=== PATIENT | female | born 1950 | race Caucasian/White ===

== ENCOUNTER 2023-04-24 12:15 | Day surgery (SDC) | payer MEDICARE, BC, SELFPAY ==
[2023-04-24] MEDS: KETOROLAC OPHTH 0.5% 1 DROP EYE-LEFT ×3 (12:20→12:30)
[2023-04-24] MEDS: TETRACAINE 0.5% OPHTH 1 DROP EYE-LEFT (12:20)
[2023-04-24] MEDS: SODIUM CHLORIDE 0.9 % (FLUSH) 10 ML SYRINGE IVF (13:00)
[2023-04-24 13:07] VITALS: BP 137/88; PULSE 96; RESP 16; TEMP 36.8; O2SAT 96
[2023-04-24 13:11] VITALS: BMI 30.9
[2023-04-24] MEDS: TETRACAINE 0.5% OPHTH 2 DROP EYE-LEFT (14:08)
[2023-04-24] MEDS: BALANCED SALT IRRIG SOLN 15 ML EYE-LEFT (14:10)
[2023-04-24] MEDS: BRIMONIDINE TARTRATE 0.2% OPHTH 1 DROP EYE-LEFT (14:25)
--- NOTE | 2023-04-24 14:27 | PM.PROC ---
Procedure Note Date Seen: 04/24/23 Will [facility] bill your pro fee for this procedure?: No Pre-op diagnosis: combined form of cataaract left eye Procedure Description: NAME OF PROCEDURE Lynne phacoemulsification, left eye, with posterior chamber lens implant. PREOPERATIVE DIAGNOSIS Nuclear sclerotic cortical combined cataract, left eye. POSTOPERATIVE DIAGNOSIS Nuclear sclerotic cortical combined cataract, left eye. INDICATIONS FOR PROCEDURE The patient has noted that his vision in the left eye is failing. Severity 8/10. Unable to correct with glasses/contact lenses; has disabling night glare when driving, difficulty reading. Because of this, the patient elected to proceed with surgical repair. I have explained the risks, benefits, alternative treatments to the patient including possible loss of the eye under correction, over correction, need for more surgery. The patient understands, accepts, and elects to proceed with surgical repair. PROCEDURE The left eye was dilated with a combination 1% Mydriacyl, 2.5% phenylephrine with topical Ocufen and Vigamox applied to the corneal surface. The patient was brought to the main operating room where under IV sedation, after pausing to identify the correct patient, correct intraoperative lens, power 22.5 diopters, the left eye was prepped and draped in usual sterile fashion for intraocular surgery. A lid speculum was placed and a paracentesis created at 6 o'clock. The chamber was filled with OVD and entered temporally with a keratome. A continuous tear capsulotomy was performed. The nucleus was hydrodissected and emulsified with local anesthetic and emulsified in a chop technique in the capsular bag. Residual cortex was cleaned. The capsule was clear. At this point, ZCBOO 22.5 diopter posterior chamber lens implant was injected into the capsular bag and was well centered. Residual OVD was cleaned from behind the implant from the capsular bag. The incision hydrated and noted to be leak free. Topical Alphagan, pilocarpine, and Vigamox were applied to the corneal surface and the patient returned to recovery in good condition having tolerated the procedure well. CONDITION ON DISCHARGE Satisfactory.
[2023-04-24 14:28] VITALS: BP 116/84; PULSE 82; RESP 16; TEMP 36.4; O2SAT 92
--- NOTE | 2023-04-24 14:39 | W.ANESCHARGE ---
Anesthesia Charges Start Date/Time Anesthesia Start Date: 04/24/23 Anesthesia Start Time: 14:06 Stop Date/Time Anesthesia Stop Date: 04/24/23 Anesthesia Stop Time: 14:31
--- NOTE | 2023-04-24 14:40 | W.ANESCHARGE ---
Anesthesia Charges Start Date/Time Anesthesia Start Date: 04/24/23 Anesthesia Start Time: 14:06 Stop Date/Time Anesthesia Stop Date: 04/24/23 Anesthesia Stop Time: 14:31 Summary Extremes of Age - Over 70 or under 1: MDA
== END 2023-04-24 15:12 | disposition home or self-care (01) ==
PROVIDERS: PCP Family Medicine; Visit Provider Ophthalmology
PROC: (CPT 66984; principal; 2023-04-24 13:30)
DX: H25.812 Combined forms of age-related cataract, left eye (principal)
CPT/HCPCS: 66984; 00142; 82962; 99100; A9270; J2250; J3010; S0020; V2632

== ENCOUNTER 2023-04-29 13:00 | Outpatient (RCR) | payer MEDICARE, BC, SELFPAY | END 2023-08-27 23:59 | disposition home or self-care (01) | PROVIDERS: PCP Family Medicine; Visit Provider Family Medicine | DX: M79.18 Myalgia, other site (principal); M25.60 Stiffness of unspecified joint, not elsewhere classified; R53.1 Weakness; Z51.89 Encounter for other specified aftercare | CPT/HCPCS: 97110; 97140; 97162 ==

== ENCOUNTER 2023-05-22 06:23 | Day surgery (SDC) | payer MEDICARE, BC, SELFPAY ==
[2023-05-22] MEDS: TETRACAINE 0.5% OPHTH 1 DROP EYE-RIGHT (06:20)
[2023-05-22] MEDS: KETOROLAC OPHTH 0.5% 1 DROP EYE-RIGHT ×3 (06:30→06:40)
[2023-05-22 06:43] VITALS: BP 130/93; PULSE 92; RESP 16; TEMP 36.4; O2SAT 94
[2023-05-22] MEDS: SODIUM CHLORIDE 0.9 % (FLUSH) 10 ML SYRINGE IVF (07:01)
[2023-05-22 07:03] VITALS: BMI 30.9
[2023-05-22] MEDS: BRIMONIDINE TARTRATE 0.2% OPHTH 1 DROP EYE-RIGHT (07:40)
[2023-05-22] MEDS: BALANCED SALT IRRIG SOLN 15 ML EYE-RIGHT (07:40)
[2023-05-22] MEDS: TETRACAINE 0.5% OPHTH 2 DROP EYE-RIGHT (07:40)
--- NOTE | 2023-05-22 07:43 | SUR.PREOP ---
The eye drops brought by the patient (Ketorolac and Prednisolone) are examined and I have determined they are labeled by the patient's pharmacy for this patient as prescribed by the surgeon. The bottles are intact, recently obtained and appear to be correct.
--- NOTE | 2023-05-22 07:46 | P.ANES_ITS ---
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
--- NOTE | 2023-05-22 07:55 | P.PCN_ITS ---
Procedure Note Date Seen: 05/22/23 Will [facility] bill your pro fee for this procedure?: No Post-op diagnosis: other Procedure: NAME OF PROCEDURE Lynne phacoemulsification, right eye, with posterior chamber lens implant. PREOPERATIVE DIAGNOSIS Nuclear sclerotic cortical combined cataract, right eye. POSTOPERATIVE DIAGNOSIS Nuclear sclerotic cortical combined cataract, right eye. INDICATIONS FOR PROCEDURE The patient has noted that his vision in the right eye is failing. Severity 7/10. Unable to correct with glasses/contact lenses; has disabling night glare when driving, difficulty reading. Because of this, the patient elected to proceed with surgical repair. I have explained the risks, benefits, alternative treatments to the patient including possible loss of the eye under correction, over correction, need for more surgery. The patient understands, accepts, and elects to proceed with surgical repair. PROCEDURE The right eye was dilated with a combination 1% Mydriacyl, 2.5% phenylephrine with topical Ocufen and Vigamox applied to the corneal surface. The patient was brought to the main operating room where under IV sedation, after pausing to identify the correct patient, correct intraoperative lens, power . The right eye was prepped and draped in usual sterile fashion for intraocular surgery. A lid speculum was placed and a paracentesis created at 12 o'clock. The chamber was filled with OVD and entered temporally with a keratome. A continuous tear capsulotomy was performed. The nucleus was hydrodissected and emulsified with local anesthetic and emulsified in a chop technique in the capsular bag. Residual cortex was cleaned. The capsule was clear. At this point, ZCBOO 19.5 diopter posterior chamber lens implant was injected into the capsular bag and was well centered. Residual OVD was cleaned from behind the implant from the capsular bag. The incision hydrated and noted to be leak free. Topical Alphagan, pilocarpine, and Vigamox were applied to the corneal surface and the patient returned to recovery in good condition having tolerated the procedure well. CONDITION ON DISCHARGE Satisfactory.
[2023-05-22 08:01] VITALS: BP 106/64; PULSE 76; RESP 16; TEMP 36.6; O2SAT 93
[2023-05-22 08:10] VITALS: BP 124/80; PULSE 86; RESP 16; O2SAT 91
--- NOTE | 2023-05-22 08:38 | W.ANESCHARGE ---
Anesthesia Charges Start Date/Time Anesthesia Start Date: 05/22/23 Anesthesia Start Time: 07:23 Stop Date/Time Anesthesia Stop Date: 05/22/23 Anesthesia Stop Time: 07:59 Summary Extremes of Age - Over 70 or under 1: MDA
== END 2023-05-22 08:44 | disposition home or self-care (01) ==
PROVIDERS: PCP Family Medicine; Visit Provider Ophthalmology
PROC: (CPT 66984; principal; 2023-05-22 07:30)
DX: H25.11 Age-related nuclear cataract, right eye (principal)
CPT/HCPCS: 66984; 00142; 99100; A9270; J2250; J3010; S0020; V2632

== ENCOUNTER 2024-05-15 07:12 | Outpatient (CLI) | payer MEDICARE, BC, SELFPAY ==
--- OUTSIDE RECORDS SUMMARY | 2024-05-13 11:32 | XMS_ITS | Patient Health Record ---
Author Organization [facility] Address [address] [place] [address] Care Team Providers Care Visual Journalist Name Role Phone Barbara Stockton Primary Care Provider Unavail able SAMAN KAPADIA Unavailable [phone] Allergies No Known Allergies Reason For Referral No Information Medications Medication SIG (Take, Route, Frequency, Duration) Notes Start Date End Date Status Fish Oil Active Simvastatin 10 MG 1 tablet in the evening Orally Once a day Active Metoprolol Succinate 100 MG 1 capsule Or ally Once a day Active metFORMIN HCl 500 MG 1 tablet with meals Orally Twice a day Active Clobetasol Propionate 0.05 % APPLY TOPIC ALLY TO AFFECTED AREA(S) TWO TIMES DAILY. External for 7 Days Active Mounjaro 2.5 MG/0.5ML Subcutaneous for 2 8 Days Active Aspir-81 Active Loperamide HCl 2 MG TAKE 2 CAPSULES BY MOUTH WITH 1ST LOOSE STOOL, THEN 1 CAPSULE WITH EACH SUBSEQUENT LOOSE STOOL, MAX DOSE IS 8 CAPSULES IN 24 HOURS. Oral for 6 Days Active Fluticasone Propionate 50 MCG/DOSE 1 spray in each nostril Nasally Once a day Active hydroCHLOROthiazide 25 MG 1 tablet Orall y Once a day Active DULoxetine HCl 20 MG 1 capsule Orally Tw ice a day Active Social History Tobacco Use: Social History Observation Description Date Details (start date - stop date) Never Smoker NA - NA Alcohol Screen Question Answer Notes Did you have a drink contain ing alcohol in the past year? Yes How often did you have a dri nk containing alcohol in the past year? 2 to 4 times a month (2 points) How many drinks did you have on a typical day when you were drinking in the past year? 1 or 2 drinks (0 point) How often did you have 6 or more drinks on one occasion in the past year? Never (0 point) Points 2 Interpretation Negative Tobacco Control (Standard) Question Answer Notes Tobacco use: Nonsmoker Problems Problem Type SNOMED Code ICD Code Onset Dates Problem Status W/U Status Risk Notes Problem Impacted cerumen (72202950) Impacted cerumen, bilateral (H61.23) Active confirmed Problem 59056068 Chronic rhinitis (J31.0) Active confirmed Problem 67731677 Eustachian tube dysfunction (H69.80) Active confirmed Problem 5648184253910341 Left ear impacted cerumen (H61.22) Active confirmed Problem Sensorineural hearing loss, bilateral (460137312) Bilateral sensorineural hearing loss (H90.3) Active confirmed Problem 206709265 Sensation of fullness in both ears (H93.8X3) Active confirmed Problem Otalgia (61691267) Otalgia, left (H92.02) Active confirmed Problem 041471043 Sensation of fullness in ear, unspecified laterality (H93.8X9) Active confirmed Vital Signs Temperature 97.7 degrees Fahrenheit 04/10/2024 Height-cm 170.18 cm 04/10/2024 Weight-kg 88.9 kg 04/10/2024 Height 67 in 04/10/2024 Weight 196 lbs 04/10/2024 BMI 30.69 kg/m2 04/10/2024 Encounters Encounter Location Date Provider Diagnosis [facility] [place] [address] [facility] [place] [id number] 04/10/2024 SAMAN KAPADIA Sensation of fullnes s in ear, unspecified laterality H93.8X9 and Impacted cerumen of left ear H61.22 Assessments Encounter Date Diagnosis (ICD Code) Assessment Notes Treatment Notes Treatment Clinical Notes Section Notes 04/10/2024 Sensation of fullness in ear, unspecified laterality (ICD-10 - H93.8X9) The patient was experiencing ear fullness and some hearing loss related to cerumen impaction. After cleaning the ears, the ear fullness was resolved. 04/10/2024 Impacted cerumen of left ear (ICD-10 - H61.22) The patient required removal of significant cerumen. The patient was instructed to avoid Qtip usage, and can use vegetable oil or mineral oil at home in the ears to soften wax. Follow up unable to clear cerumen at home. 04/10/2024 Other Body mass index material was published Plan Of Treatment No Information Insurance Providers Payer Name Payer Address Payer Phone Subscriber Number Group Number Insured Name Patient Relationship to Insured Coverage Start Date Coverage End Date [employer] [place] [employer] [address] [address] [place], [place] [id number] 2000 [id number] Porsche Rey Self - patient is the insured MEDICARE [address] [place] [address] [id number] Porsche Rey Self - patient is the insured 3 Medical (General) History Medical History History ICD Code HTN Cerumen, impacted Hearing loss, sensorineural Otalgia Diabetes High cholesterol anxiety Covid vaccine 07/2020 Surgical History Surgery Date(Month/Year) Right hip fx Hernia x 2 Hospitalization History Reason Date(Month/Year) above surgery for hip
--- OUTSIDE RECORDS SUMMARY | 2024-05-13 11:32 | XMS_ITS ---
Author Organization [facility] Address [address] [place] [address] Care Team Providers Care Marker Machine Name Role Phone Barbara Stockton Primary Care Provider Unavail able SAMAN KAPADIA Unavailable [phone] Allergies No Known Allergies REASON FOR VISIT ear cleaning Medications Medication SIG (Take, Route, Frequency, Duration) Notes Start Date End Date Status Clobetasol Propionate 0.05 % APPLY TOPIC ALLY TO AFFECTED AREA(S) TWO TIMES DAILY. External for 7 Days Active Aspir-81 Active Loperamide HCl 2 MG TAKE 2 CAPSULES BY MOUTH WITH 1ST LOOSE STOOL, THEN 1 CAPSULE WITH EACH SUBSEQUENT LOOSE STOOL, MAX DOSE IS 8 CAPSULES IN 24 HOURS. Oral for 6 Days Active Fish Oil Active Simvastatin 10 MG 1 tablet in the evening Orally Once a day Active Metoprolol Succinate 100 MG 1 capsule Or ally Once a day Active metFORMIN HCl 500 MG 1 tablet with meals Orally Twice a day Active Mounjaro 2.5 MG/0.5ML Subcutaneous for 2 8 Days Active Fluticasone Propionate 50 MCG/DOSE 1 [...] (Standard) Question Answer Notes Tobacco use: Nonsmoker Vital Signs Temperature 97.7 degrees Fahrenheit 04/10/20 Weight 196 lbs 04/10/2024 Height 67 in 04/10/2024 BMI 30.69 kg/m2 04/10/2024 Height-cm 170.18 cm 04/10/2024 Weight-kg 88.9 kg 04/10/2024 Encounters Encounter Location Date Provider Diagnosis [facility] [place] [address] [place] [address] 04/10/2024 SAMAN KAPADIA Sensation of fullnes s [...] index material was published Plan Of Treatment Treatment Notes Assessment Notes Sensation of fullness in ear , unspecified laterality The patient was experiencing ear fullnes s and some hearing loss related to cerumen impaction. After cleaning the ears, the ear fullness was resolved. Impacted cerumen of left ear The patient required removal of significant cerumen. The patient was instructed to avoid Qtip usage, and can use vegetable oil or mineral oil at home in the ears to soften wax. Follow up unable to clear cerumen at home. Other Body mass index mate rial was published Next Appt Details Follow Up: prn, Reason: Progress Notes * Porsche ADLERnDOB: (73 yo F)Acc No.[id number]:04/10/2024 Patient: Porsche SUN Provider: Marquis KAPADIA MD :[id number] A ge:73 Y S ex:Female Date:04/10/2024 Address:[address] [place] [address] [id number] Pcp:Barbara Stockton Subjective: * Chief Complaints: * E ar cleaning * HPI: - -Narrative--: Current visit summary: Gillian shen presents to the clinic for routine ear cleaning. . * Medical History: * Surgical History: R ight hip fx Hernia x 2 * Hospitalization/Major Diagno stic Procedure: a ramona surgery for hip * Family History: Sarah krause Grand Father: diagnosed with History of frequent ear infections. * Social History: T obacco Use: T obacco Control (Standard) T obacco use: N onsmoker A lcohol Use: A lcohol Screen D id you have a drink containing alcohol in the past year? Y es H ow often did you have a drink containing alcohol in the past year? 2 to 4 times a month (2 points) H ow many drinks did you have on a typical day when you were drinking in the past year? 1 or 2 drinks (0 point) H ow often did you have 6 or more drinks on one occasion in the past year? N ever (0 point) P oints 2 I nterpretation N egative Recreational drugs R ecreational Drug Use: N o * Medications: T akingAspir-81 hydroCHLOROthiazide 25 MG Tablet 1 tablet Orally Once a day Fluticasone Propionate 50 MCG/DOSE Suspension 1 spray in each nostril Nasally Once a day DULoxetine HCl 20 MG Capsule Delayed Release Particles 1 capsule Orally Twice a day Simvastatin 10 MG Tablet 1 tablet in the evening Orally Once a day Fish Oil metFORMIN HCl 500 MG Tablet 1 tablet with meals Orally Twice a day Metoprolol Succinate 100 MG Capsule ER 24 Hour Sprinkle 1 capsule Orally Once a day Mounjaro 2.5 MG/0.5ML Solution Auto-injector Subcutaneous Clobetasol Propionate 0.05 % Cream APPLY TOPICALLY TO AFFECTED AREA(S) TWO TIMES DAILY. External Loperamide HCl 2 MG Capsule TAKE 2 CAPSULES BY MOUTH WITH 1ST LOOSE STOOL, THEN 1 CAPSULE WITH EACH SUBSEQUENT LOOSE STOOL, MAX DOSE IS 8 CAPSULES IN 24 HOURS. Oral Taking Aspir-81 Taking hydroCHLOROthiazide 25 MG Tablet 1 tablet Orally Once a day Taking Fluticasone Propionate 50 MCG/DOSE Suspension 1 spray in each nostril Nasally Once a day Taking DULoxetine HCl 20 MG Capsule Delayed Release Particles 1 capsule Orally Twice a day Taking Simvastatin 10 MG Tablet 1 tablet in the evening Orally Once a day Taking Fish Oil Taking metFORMIN HCl 500 MG Tablet 1 tablet with meals Orally Twice a day Taking Metoprolol Succinate 100 MG Capsule ER 24 Hour Sprinkle 1 capsule Orally Once a day Taking Mounjaro 2.5 MG/0.5ML Solution Auto-injector Subcutaneous Taking Clobetasol Propionate 0.05 % Cream APPLY TOPICALLY TO AFFECTED AREA(S) TWO TIMES DAILY. External Taking Loperamide HCl 2 MG Capsule TAKE 2 CAPSULES BY MOUTH WITH 1ST LOOSE STOOL, THEN 1 CAPSULE WITH EACH SUBSEQUENT LOOSE STOOL, MAX DOSE IS 8 CAPSULES IN 24 HOURS. Oral DiscontinuedHyoscyamine LORazepam Medication List reviewed and reconciled with the patientDiscontinued Hyoscyamine Discontinued LORazepam Medication List reviewed and reconciled with the patient * Allergies: N .K.D.A.no[Allergies Verified] Objective: * Vitals: T emp: 97.7 F, Wt-lbs: 196 lbs, Ht: 67 in, BMI:30.69Index, Ht-cm: 170.18 cm, Wt- k.9 kg. * Examination: E ars: Clinical speech hotel receptionist threshold: N ormal, Able to hear normal speech , Normal, Able to hear normal speech. Auricle: N ormal, Auricles without scars, lesions, or masses , Normal, Auricles without scars, lesions, or masses. External auditory canal: L eft:cerumen impaction. Right: clear canal. Tympanic membrane: clear bilat after cleaning. C onstitutional: General Appearance: N ormal, Well developed, Well nourished, No obvious distress. Ability to Communicate: N ormal, Communicates appropriately. H ead and Face: Appearance and Symmetry: N ormal, Facial strength symmetric, No scalp or facial scarring or suspicious lesions. E yes: Appearance N ormal extraocular movements, No nystagmus, Conjunctiva normal. N ose: Architecture: N ormal, Grossly normal external nasal architecture with no masses or lesions. O ral Cavity and Oropharynx: Lips: N ormal, No lip deformities. Dental and gingiva: N ormal, No obvious dental or gingival disease. Mucosa: N ormal, Moist mucous membranes. ? N elda: Masses/lymph nodes: N ormal, No visible neck masses or swelling. N eurological: Alertness and orientation: N ormal, Responsive, oriented x 3. Cranial Nerves II-XII N ormal. Speech pattern: N ormal, Prosaic, Direct with normal inflection and intonation. C ardiovascular: Peripheral vascular system: N ormal, including normal palpable exam of the head and neck, including no abnormal pulsations or thrills. Pulse N ormal. R espiratory: Symmetry and Respiratory effort: N ormal, Symmetric chest movement and expansion with no increased intercostal retractions or use of accessory muscles. Breath sounds: N ormal. L arynx and Hypopharynx, mirror or scope: Voice Quality: N ormal voice quality. ? Assessment: * Assessment: 1. S ensation of fullness in ear, unspecified laterality - H93.8X9 (Primary) 2 . I mpacted cerumen of left ear - H61.22 Plan: * Treatment: 2. I mpacted cerumen of left ear Notes:The patient required removal of significant cerumen. The patient was instructed to avoid Qtip usage, and can use vegetable oil or mineral oil at home in the ears to soften wax. Follow up unable to clear cerumen at home. 3. O thers Notes: Body mass index material was published * Procedures: M icroscopic Ear Exam with Cerumen Removal: Risks and benefits were discussed and verbal consent provided. The patient was positioned under the microscope and the cerumen impaction were removed from the left ear under microscopic visualization without incident. I used a combination of ear suction, cerumen curet and alligator forceps. The tympanic membrane is intact and without infection or effusion. The procedure was well tolerated. * Procedure Codes: 6 9210 Cerumen removal bilateral (in-office)[id number] Binocular microscopy (in-office) * Preventive Medicine: MIPS: B OH Above Normal BMI Follow-up D ietary management education, guidance, and counseling * Follow Up: p rn * * AP PLACER Sign off status: Completed true * Provider: Marquis KAPADIA MD Date: 06/10/2023 Generated for Fátimai nigel/Kimberly/eTransmitting on: 07/14/2023 11:31 AM RIPRAP PLACER History and Physical Notes * HPI (History of Present Illness) Category Sub-Category Detail Notes Category Not es --Narrative-- Current visit summary: Patient p resents to the clinic for routine ear cleaning. Examination Category Sub-Category Detail Notes Category Not es Constitutional General Appearance: Normal, Well developed, Well nourished, No obvious distress Ability to Communicate: Normal, Communic ates appropriately Head and Face Appearance and Symmetry: Normal, Facial strength symmetric, No scalp or facial scarring or suspicious lesions Ears Clinical speech rece ption threshold: Normal, Able to hear normal speech , Normal, Able to hear normal speech Auricle: Normal, Auricles wit hout scars, lesions, or masses , Normal, Auricles without scars, lesions, or masses External auditory canal: Left:cerumen im paction. Right: clear canal Tympanic membrane: clear bilat after cl eaning Nose Architecture: Normal, Grossly normal external nasal architecture with no masses or lesions Oral Cavity and Oropharynx Lips: Normal, No lip deformities Dental and gingiva: Normal, No obvious d ental or gingival disease Mucosa: Normal, Moist mucous membranes Larynx and Hypopharynx, mirr or or scope Voice Quality: Normal voice quality Neck Masses/lymph nodes: Normal, No v isible neck masses or swelling Neurological Alertness and orientation: Steph l, Responsive, oriented x 3 Cranial Nerves II-XII Normal Speech pattern: Normal, Prosaic, Dir ect with normal inflection and intonation Respiratory Symmetry and Respiratory effort: Normal, Symmetric chest movement and expansion with no increased intercostal retractions or use of accessory muscles Breath sounds: Normal Cardiovascular Peripheral vascular system: Norm al, including normal palpable exam of the head and neck, including no abnormal pulsations or thrills Pulse Normal Eyes Appearance Normal extraocular movements , No nystagmus, Conjunctiva normal
--- NOTE | 2024-05-15 08:00 | W.ANESCHARGE ---
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
--- NOTE | 2024-05-15 08:48 | W.ANESCHARGE ---
Anesthesia Charges Start Date/Time Anesthesia Start Date: 05/15/24 Anesthesia Start Time: 08:09 Stop Date/Time Anesthesia Stop Date: 05/15/24 Anesthesia Stop Time: 08:40 Summary Extremes of Age - Over 70 or under 1: MDA
== END 2024-05-15 07:13 | disposition home or self-care (01) ==
LOC: OP CLINIC 07:15
PROVIDERS: PCP Family Medicine; Visit Provider Internal Medicine Gastroenterology
DX: Z12.11 Encounter for screening for malignant neoplasm of colon (principal); D12.3 Benign neoplasm of transverse colon; K57.30 Diverticulosis of large intestine without perforation or abscess without bleeding; Z86.0101 Personal history of adenomatous and serrated colon polyps
CPT/HCPCS: 00811; 45385; 99100; J2704

== ENCOUNTER 2025-03-03 11:14 | Emergency (ER) | payer MEDICARE, BC, SELFPAY ==
--- OUTSIDE RECORDS SUMMARY | 2025-03-03 11:16 | XMS_ITS | Patient Health Record ---
Author Organization [facility] Address [address] [place] [address] Care Team Providers Care Bedspread Seamer Name Role Phone Barbara Stockton Primary Care Provider Unavail able SAMAN KAPADIA Unavailable [phone] Allergies No Known Allergies Reason For Referral No Information Medications Medication SIG (Take, Route, Frequency, Duration) Notes Start Date End Date Status Fish Oil Active Simvastatin 10 MG Tablet 1 tablet in the evening Orally Once a day Active Metoprolol Succinate 100 MG Capsule ER 24 Hour Sprinkle 1 capsule Orally Once a day Active metFORMIN HCl 500 MG Tablet 1 tablet wit h meals Orally Twice a day Active Clobetasol Propionate 0.05 % Cream APPLY TOPICALLY TO AFFECTED AREA(S) TWO TIMES DAILY. External; Duration: 7 Days Active Mounjaro 2.5 MG/0.5ML Soluti on Auto-injector Subcutaneous; Duration: 28 Days Active Aspir-81 Active Loperamide HCl 2 MG Capsule TAKE 2 CAPSU LES BY MOUTH WITH 1ST LOOSE STOOL, THEN 1 CAPSULE WITH EACH SUBSEQUENT LOOSE STOOL, MAX DOSE IS 8 CAPSULES IN 24 HOURS. Oral; Duration: 6 Days Active Fluticasone Propionate 50 MCG/DOSE Suspension 1 spray in each nostril Nasally Once a day Active hydroCHLOROthiazide 25 MG Tablet 1 tablet Orally Once a day Active DULoxetine HCl 20 MG Capsule Delayed Release Particles 1 capsule Orally Twice a day Active Social History Tobacco Use: Social History Observation Description Date Details (start date - stop date) Never Smoker NA - NA Social History Alcohol Use: Social Info Question Answer Notes Recreational drugs Recreational Drug Use: No Alcohol Screen Did you have a drink containing alcohol in the past year? Yes How often did you have a drink containing [...] Never (0 point) Points 2 Interpretation Negative : Social Info Question Answer Notes How often do you consume alcohol? Answer: more th an 6 per week Tobacco Use: Social Info Question Answer Notes Tobacco Control (Standard) Tobacco use: Nonsmoker Recreational drug use Social Info Question Answer Notes Did you ever use recreational drugs? Answer: No Additional Details Category Social Info Options Details Occupation Current occupation: retired Problems Problem Type SNOMED Code ICD Code Onset Dates Problem Status W/U Status Risk Notes Problem Impacted cerumen (86719435) Impacted cerumen, bilateral (H61.23) Active confirmed Problem Chronic rhinitis (11359499) Chronic rhinitis (J31.0) Active confirmed Problem Eustachian tube dysfunction (41528443) Eustachian tube dysfunction (H69.80) Active confirmed Problem Impacted cerumen (53595264) Left ear impacted cerumen (H61.22) Active confirmed Problem Sensorineural hearing loss, bilateral (611313746) Bilateral sensorineural hearing loss (H90.3) Active confirmed Problem Disorder of ear (disorder) (55434465) Sensation of fullness in both ears (H93.8X3) Active confirmed Problem Otalgia of left ear (finding) (4093321977) Otalgia, left (H92.02) Active confirmed Problem Sensation of fullness in ear, unspecified laterality (H93.8X9) Active confirmed Vital Signs Temperature 97.7 degrees Fahrenheit 04/10/2024 Height-cm 170.18 cm 04/10/2024 Weight-kg 88.9 kg 04/10/2024 Height 67 in 04/10/2024 Weight 196 lbs 04/10/2024 BMI 30.69 kg/m2 04/10/2024 Encounters Encounter Location Date Provider Diagnosis [facility] [address] [place] [address] [place] [id number] 04/10/2024 SAMAN KANG Sensation of fullnes s in ear, unspecified [...] Date [employer] [place] [employer]ICARE [address] [address] [place], [place] [id number] 2000 [id number] Porsche Rey Self - patient is the insured MEDICARE [address] [place] [address] [id number] Porsche Rey Self - patient is the insured 3 Medical (General) History Medical History History ICD Code HTN Cerumen, impacted Hearing loss, sensorineural Otalgia Diabetes High cholesterol anxiety Covid vaccine 07/2020 Surgical History Surgery Date(Month/Year) Right hip fx Hernia x 2 Hospitalization History Reason Date(Month/Year) above surgery for hip
[2025-03-03 11:30] VITALS: BP 138/86; PULSE 90; RESP 16; TEMP 36.4; O2SAT 97; BMI 30.1
--- NOTE | 2025-03-03 11:39 | CRLHL7_ITS ---
For Patients: As a result of the Cures Act, medical imaging exams and procedure reports are released immediately into your electronic medical record. You may view this report before your referring provider. If you have questions, please contact your health care provider. INDICATION: Dizziness. TECHNIQUE: CT head without contrast. COMPARISON: None. FINDINGS: Generalized volume loss and mild changes of chronic small vessel ischemic disease. Intracranial atherosclerosis. No mass effect or midline shift. No hydrocephalus. No CT evidence of acute hemorrhage or infarction. No abnormal extra-axial fluid collection. Bone windows show no acute calvarial fracture. Paranasal sinuses and orbits as imaged are unremarkable. IMPRESSION: No acute intracranial abnormality. Dictated by Regulo Majano MD @ 03/03/2025 12:50:41 PM Please note that all CT scans at this facility use dose modulation, iterative reconstruction, and/or weight-based dosing when appropriate to reduce radiation dose to as low as reasonably achievable. Dictated by: Regulo Majano MD @ 03/03/2025 12:50:53 (Electronically Signed)
--- NOTE | 2025-03-03 11:44 | CRLHL7_ITS ---
For Patients: As a result of the Century Cures Act, medical imaging exams and procedure reports are released immediately into your electronic medical record. You may view this report before your referring provider. If you have questions, please contact your health care provider. INDICATION: Dizziness. TECHNIQUE: CTA head using intravenous contrast with bolus tracking, 3D angiographic rendering using maximum intensity projection (MIP) and images permanently archived. CTA neck using intravenous contrast with bolus tracking, 3D angiographic rendering using maximum intensity projection (MIP) and images permanently archived. FINDINGS: CTA head: There is normal opacification of the intracranial vasculature. There is no large vessel occlusion or significant intracranial stenosis. No aneurysm is identified. CTA neck: There is no significant carotid artery stenosis or dissection. There is no significant vertebral artery stenosis or dissection. IMPRESSION: No acute intracranial abnormality at CTA. No significant carotid or vertebral artery stenosis or dissection. Please note that all CT scans at this facility use dose modulation, iterative reconstruction, and/or weight-based dosing when appropriate to reduce radiation dose to as low as reasonably achievable. Dictated by Hilario Oro MD @ 03/04/2025 8:57:56 AM (Electronically Signed)
--- NOTE | 2025-03-03 11:45 | ED.DIZZY ---
HPI - Dizziness General Time Seen by Provider: 11:46 Date Seen: 03/03/25 Chief Complaint: Dizziness/Vertigo Stated Complaint: Dizziness Time Seen by Provider: 03/03/25 11:47 Source: patient, RN notes reviewed and old records reviewed Mode of arrival: ambulatory Limitations: no limitations History of Present Illness HPI Narrative: Triage nurse brought this 74-year-old female to attention to me, there is no availability of rooms but after triage in her, they felt she needed CT imaging for the possibility of stroke pathology. She woke this morning with new dizziness and had difficulty balancing and walking. She was up in the night around 2:23 a.m. and did not notice this. Last known well would be around 2:23 a.m.. She checked her sugar as she is diabetic, was 126 this morning. She does note she has anxiety and did tell nursing staff that her anxiety has been worse lately. They did do head CT [facility] We are going to try to find room for her, she will need CT angiography as well, will get a point of care creatinine. I am going to try to see her in triage shortly. We were able to get Perlita into room for quite quickly, saw her immediately after she was placed in the room. She awoke at 9:30 a.m. and felt dizzy, it is not a room spinning sensation. It is more sense of imbalance in her gait or wobbly. Her daughter is with her, they have noted no speech issues. She notes no visual changes, no numbness tingling or weakness anywhere. Patient's mom had double aneurysms in the back of her head, wonder if this was vertebral artery. She does not have a headache. She is diabetic. She has not been sick with anything, no cough or cold symptoms, no fevers or chills, no abdominal symptoms. She has not noted any chest pain, no shortness of breath, no palpitations or irregular heartbeat. Did take her 81 mg aspirin today, takes 1 daily. In her [facility] records, she had a creatinine of 0.88 on October 07, estimated GFR of 68. Do think that this patient can proceed with her CT imaging with CT head noncontrast and CT head and neck angio at this time. Have updated Radiology. Patient doesn't drink any alcohol. Patient's past medical history is significant for hypertension, type 2 diabetes, lichen sclerosis, osteopenia, allergic rhinitis, history of colon polyps, irritable bowel syndrome with diarrhea. She does have a history of anxiety and depression. MD elicited complaint: dizziness, difficulty walking and disequilibrium Related Data Home Medications ?Medication ?Instructions ?Recorded ?Confirmed aspirin 81 mg tablet,delayed 81 mg PO QDAY 03/29/23 03/03/25 release cholecalciferol (vitamin D3) 50 50 mcg PO QDAY 03/29/23 03/03/25 mcg (2,000 unit) capsule (Vitamin D3) coenzyme Q10 300 mg capsule (Co 300 mg PO QDAY 03/29/23 03/03/25 Q-10) duloxetine 20 mg capsule,delayed 20 mg PO BID 03/29/23 03/03/25 release fluticasone propionate 50 1 spray intranasal QDAY 03/29/23 03/03/25 mcg/actuation nasal spray,suspension hydrochlorothiazide 25 mg tablet 25 mg PO DAILY 03/29/23 03/03/25 ibuprofen 600 mg tablet 600 mg PO 3XD 03/29/23 03/03/25 metformin 500 mg tablet,extended 500 mg PO BID 03/29/23 03/03/25 release 24 hr metoprolol succinate 100 mg 100 mg PO DAILY 03/29/23 03/03/25 tablet,extended release 24 hr miconazole nitrate 200 mg-2 % (9 topical 03/29/23 03/29/23 gram) vaginal kit (Miconazole-3) multivitamin (Multiple Vitamins 1 tab PO QDAY 03/29/23 04/24/23 tablet) omega 4-xcy-oyh-fish oil 900 cap PO 03/29/23 03/29/23 mg-1,400 mg capsule,delayed release (Fish Oil) simvastatin 10 mg tablet 10 mg PO QPM 03/29/23 03/03/25 zinc gluconate 50 mg tablet 50 mg PO 3XW 03/29/23 03/03/25 blood glucose control high and low 03/03/25 03/03/25 solution (Accu-Chek Guide L1-L2 Control Solution) tirzepatide 5 mg/0.5 mL 5 mg subcut 03/03/25 subcutaneous pen injector (Mónica) Allergies Allergy/AdvReac Type Severity Reaction Status Date / Time No Known Drug Allergies Allergy Unverified 03/29/23 09:11 Review of Systems Status of ROS: Reports: 6 or more systems reviewed and unremarkable except as noted in History and below [facility] Medical History Type 2 diabetes mellitus ?E11.9 - Type 2 diabetes mellitus without complications (ICD-10) Closed fracture of neck of femur (~09/2013) ?S72.009A - Fracture of unspecified part of neck of unspecified femur, initial encounter for closed fracture (ICD-10) Surgical History History of open reduction and internal fixation (ORIF) procedure (10/07/13) ?Z98.890 - Other specified postprocedural states (ICD-10) Status post laparoscopic hernia repair (03/08/16) ?Z98.890 - Other specified postprocedural states (ICD-10) ?Z87.19 - Personal history of other diseases of the digestive system (ICD-10) Family History Father Heart disease Myocardial infarction Mother Diabetes Brain aneurysm Sister Diabetes Brother Diabetes Social History Smoking Status: Former smoker What tobacco products do you use: cigarettes Smoking quit date/years: >15 years ago Do you use any of these nicotine containing products: None Second hand tobacco smoke exposure: No How often do you have a drink containing alcohol: 2-3 times a week Alcohol type: beer, wine and hard liquor How many standard drinks containing alcohol do you have on a typical day: 1 or 2 How often do you have six or more drinks on one occasion: Never AUDIT-C Alcohol total score: 3 Non-prescribed substance use: denies use Caffeine: Yes Are you using contraception or practicing any form of control: No Exam Const: Vital Signs, click to edit/add: Vital Signs - 24 hr 03/03/25 11:30 03/03/25 12:13 03/03/25 16:38 Temperature 97.6 F Pulse Rate [Pulse Oximeter] 90 91 Respiratory Rate 16 18 Blood Pressure [Ri ght Upper Arm] 138/86 130/90 H Pulse Oximetry 97 95 96 Oxygen Delivery Me thod Room Air Room Air This 74-year-old female is observed being brought back in wheelchair into exam room for, nursing staff did have to assist her as she seemed a little unsteady going from the wheelchair to the chair. She is alert, interactive, no apparent distress. GCS 15/15. Pupils equal round reactive, sclera clear, extraocular muscles intact, no nystagmus. No visual field cuts and gross confrontation. Symmetrical facial function, speech is normal. Lungs are clear, good air entry, no wheeze or crackles come know to keep knee a. CV regular rate and rhythm, no murmur, normal S1-S2, no S3-S4. Abdomen is soft, nontender, nondistended, no organomegaly noted. She has no lower extremity edema. Strength is 5 5 and symmetric throughout upper and lower extremities, normal light touch sensation. No dysmetria noted on examination. When I get her up to ambulate, just seems wobbly, gait maybe mildly wide-based. Both she and her daughter note that she normally walks without any issue. She certainly seems to be wobbly at times but I cannot assign necessarily one side or the other where I see the problem. Right now based on an AH, would give her score of 0 but I certainly see concerns with her gait. Documenting provider has reviewed patient's vital signs: yes Course Course ED Course: We are going to proceed with neuro imaging with noncontrast head CT and CT angiography. Patient will have an EKG, be on pulse oximetry and cardiac monitoring, she sounds regular right now but we have discussed embolic phenomena with arrhythmia that can happen with stroke pathology. She is diabetic in certainly could have small vessel disease. She did take an aspirin this morning and takes 1 daily, 81 mg. Will get her head CT and CT angio done, pushed to [place] and talk to Stroke Neurology. She is out of a thrombolytics window, have less concern about large vessel occlusion in this patient but will still do the CT angiography. There is a family history of cerebral aneurysms in her mother. Patient understands that we may be proceeding with MR imaging of her brain as well. Reevaluation(s) Time of Reevaluation #1: 13:39 Reevaluation #1: Reviewed with patient her head CT imaging in her CT angio imaging are reassuring we normal. We did discuss that there was no aneurysm. We also reviewed that the head CT may not show strokes right away and may never show some small area of strokes. Have reviewed with her that I think we will likely be proceeding with MRI of her head, do need to talk to Stroke Neuro whom has been paged. She brought that she had heard that if you have a stroke you need to get a medicine within 4 hours. I reviewed with her that when she presented she was already out of the window of the 4.5 hours. We discussed her last known well was when she was up this morning. We reviewed that when she woke up at 9:30 a.m. this morning she already had symptoms, we do not know exactly when they started but that would put her out of a window to get a thrombolytic. Time of Reevaluation #2: 16:49 Reevaluation #2: Did review with patient that her MRI of her brain is not showing any stroke. She has felt better here, feels that she is walking better. She has questions about osteopenia moving into osteoporosis, questions about the physical therapy she is doing, questions about seeing a warp clamper. They asked about her labs, I will need to look at those again and come back to talk to her. Time of Reevaluation #3: 17:05 Reevaluation #3: Did review with patient that the liver tests are mildly off. She has had a history of this before. However, in her records in clinic her liver enzymes were normal in May. This is something that needs to be followed up, they should be rechecked in clinic. I do not see any emergent need for further evaluation at this time, they are not elevated to a level that would require any emergent intervention. Consultations Consultation #1: Did speak with Stroke Neurology Dr. Madison. He has the patient CT and CT angiograms. Reviewed the case, he does agree with proceeding with MR brain which I had already ordered. Did review with him that baseline this patient is on 81 mg aspirin daily and did take it today. I will follow up with them once we have MR imaging. Time: 14:01 Vital Signs Vital signs: Initial Vital Signs Temperature 97.6 F 03/03/25 11:30 Temperature Source Temporal Artery Scan 03/03/25 11:30 Pulse Rate 90 03/03/25 11:30 Respiratory Rate 16 03/03/25 11:30 Blood Pressure 138/86 03/03/25 11:30 Blood Pressure Mean 103 03/03/25 11:30 Blood Pressure Position Sitting 03/03/25 11:30 Pulse Oximetry 97 03/03/25 11:30 Oxygen Delivery Method Room Air 03/03/25 11:30 Vital Signs Temperature 97.6 F 03/03/25 11:30 Pulse Rate 90 03/03/25 11:30 Respiratory Rate 16 03/03/25 11:30 Blood Pressure 138/86 03/03/25 11:30 Pulse Oximetry 97 03/03/25 11:30 Oxygen Delivery Method Room Air 03/03/25 11:30 Temperature 97.6 F 03/03/25 11:30 Pulse Rate 91 03/03/25 16:38 Respiratory Rate 18 03/03/25 16:38 Blood Pressure 130/90 H 03/03/25 16:38 Pulse Oximetry 96 03/03/25 16:38 Oxygen Delivery Method Room Air 03/03/25 16:38 Medications Administered Medications: Discontinued Medications Generic Name Dose Route Start Last Admin Trade Name Freq PRN Reason Stop Dose Admin Lorazepam 1 mg 03/03/25 15:01 03/03/25 15:19 Lorazepam 1 Mg Tablet PO 03/03/25 15:02 1 mg ONCE ONE Administration MDM - Dizziness Lab Data Attestation: I reviewed the patient's lab results. Labs: Lab Results 03/03/25 Range/Units 12:08 WBC 6.39 (4.50-11.00) K/uL RBC 5.10 (4.00-5.20) m/uL Hgb 15.9 (12.0-16.0) gm/dL Hct 46.9 (33.0-51.0) % MCV 92 (80-100) fL MCH 31 (26-34) pg MCHC 34 (32-36) gm/dL RDW Coeff of Mary 13.4 (11.5-15.5) % Plt Count 179 (140-440) K/uL Neut % (Auto) 69.7 (42.0-72.0) % Lymph % (Auto) 21.8 (20-44) % [place] % (Auto) 6.1 (0.0-11.0) % Eos % (Auto) 1.7 (0.0-7.0) % Baso % (Auto) 0.5 (0.0-3.0) % Neut # (Auto) 4.46 (1.7-7.0) K/uL Lymph # (Auto) 1.39 (0.90-2.90) K/uL [place] # (Auto) 0.40 (0.00-0.90) K/UL Eos # (Auto) 0.11 (0.00-0.50) K/uL Baso # (Auto) 0.03 (0.00-0.30) K/uL Abs Immat Gran (auto) 0.01 (0.00-0.30) K/uL Imm/Tot Granulo (auto) 0.2 % INR 1.15 H (0.91-1.10) APTT 35 H (23-33) Seconds Sodium 136 (135-149) mmol/L Potassium 4.3 (3.6-5.1) mmol/L Chloride 97 (96-114) mmol/L Carbon Dioxide 32 (20-32) mmol/L Anion Gap 7 (7-15) mEq/L BUN 18 (7-30) mg/dL Creatinine 0.8 (0.5-1.5) mg/dL Estimated Creat Clear 46.54 Estimated GFR 76 ml/min Glucose 190 H (60-115) mg/dL Lactate 2.9 H (0.5-1.9) mmol/L Calcium 9.6 (8.4-10.6) mg/dL Magnesium 1.9 (1.5-2.6) mg/dL Total Bilirubin 1.7 H (0.1-1.5) mg/dL AST 79 H (12-35) U/L ALT 60 H (4-35) U/L Alkaline Phosphatase 54 (40-150) U/L Troponin I < 0.01 (0.01-0.04) ng/mL C-Reactive Protein < 0.5 L (0.5-1.0) mg/dL NT-Pro-B Natriuret Pep 23 (See Note) pg/mL Total Protein 8.1 (6.0-8.3) g/dL Albumin 4.6 (3.3-5.0) g/dL TSH 2.890 (0.270-4.200) uIU/mL Imaging Data CT scan - head: Attestation: I have reviewed the pertinent imaging results. Radiologist's impression: Patient: PERLITA ADLER Facility:?[facility] Patient ID:?[id number] Site Patient ID:?[id number]. Site :?[id number] Study:?CT-Head WITHOUT NON ACUTE-03/03/2025 12:37:04 PM Ordering Physician:?Vazquez Rosado Final Report: INDICATION: Dizziness. TECHNIQUE: CT head without contrast. COMPARISON: None. FINDINGS: Generalized volume loss and mild changes of chronic small vessel ischemic disease. Intracranial atherosclerosis. No mass effect or midline shift. No hydrocephalus. No CT evidence of acute hemorrhage or infarction. No abnormal extra-axial fluid collection. Bone windows show no acute calvarial fracture. Paranasal sinuses and orbits as imaged are unremarkable. IMPRESSION: No acute intracranial abnormality. Dictated by Regulo Majano MD @ 03/03/2025 12:50:41 PM Please note that all CT scans at this facility use dose modulation, iterative reconstruction, and/or weight-based dosing when appropriate to reduce radiation dose to as low as reasonably achievable. Dictated by: Regulo Majano MD @ 03/03/2025 12:50:53 (Electronic Signature) CT- Other: Attestation: I have reviewed the pertinent imaging results. Radiologist's impression: Patient: PERLITA ADLER Facility:?[facility] Patient ID:?[id number] Site Patient ID:?[id number]. Site :?1950 Study:?CT-Head Angio 95CC ISOVUE 370 NON ACUTE-03/03/2025 12:37:27 PM Ordering Physician:?Vazquez Rosado Preliminary Report: Preliminary report : . CTA head: No large vessel occlusion. . CTA neck: No high-grade carotid artery stenosis, occlusion or dissection. Bilateral vertebral arteries are patent. . Dictated by Regulo Majano MD @ 03/03/2025 12:57:03 PM Read by:Marlee Majano MD @03/03/2025 12:57:14 PM MR Brain: Attestation: I have reviewed the pertinent imaging results. Radiologist's impression: Patient: PERLITA ADLER Facility:?[facility] Patient ID:?[id number] Site Patient ID:?[id number]. Site :?1950 Study:?MRI-Head wo-03/03/2025 4:18:48 PM Ordering Physician:Jigna Rosado Final Report: INDICATION: Dizziness, gait imbalance. TECHNIQUE: Multisequence multiplanar MRI of the brain without the use of intravenous contrast. COMPARISON: Correlated with CT dated 03/03/2025. FINDINGS: No evidence of acute ischemia. Scattered foci of T2 prolongation within the supratentorial white matter typical of chronic small vessel ischemic changes. Punctate foci of susceptibility artifact in the left temporal lobe (series 7, image 21) and left occipital lobe (series 7, image 14). Mild diffuse parenchymal volume loss. The ventricles are proportional to the sulci. The flow voids of the larger intracranial arteries are preserved. Normal calvarial bone marrow signal intensity. Bilateral pseudophakia. The paranasal sinuses and mastoid air cells are predominantly clear. IMPRESSION: 1. No acute intracranial abnormality. Specifically, no evidence of acute ischemia. 2. Mild diffuse parenchymal volume loss and chronic small vessel ischemic changes. 3. Punctate foci of susceptibility artifact in the left temporal lobe and left occipital lobe consistent with sequela of prior microhemorrhages. Dictated by Naveed Ramirez MD @ 03/03/2025 4:23:26 PM (Electronic Signature) ECG Data Attestation: I personally reviewed and interpreted this ECG as follows: (Normal sinus rhythm, 85 beats per minute.) ECG interpretation date: 03/03/25 ECG interpretation time: 12:17 Prior ECG tracings: not available for review Discharge Plan Discharge Clinical Impression: Dizziness, Elevated liver enzymes Patient Disposition: Home, Self-Care Condition: Stable Instructions: Dizziness (ED), Transaminitis (ED) Additional Instructions: We have done CT imaging an MR of the brain, no central cause for dizziness found. There was certainly no evidence of stroke or aneurysm on this imaging which is excellent news. Your liver enzymes and liver tests are mildly elevated, this does warrant following an recheck. I request that you get scheduled to see your primary care provider within the next week. Plan for recheck of liver enzymes and liver tests can be made at that point. Continue to work with the physical therapist regarding walking, see if they have any concerns with your gait. Dizziness can be a difficult symptom for some patients in we often do not fine 1 particular thing to correct. However, if you feel you are worsening, have new concerns, please seek re-evaluation. Activity Level: Activity as Tolerated Prescriptions: No Action duloxetine 20 mg capsule,delayed release(DR/EC) 20 mg PO BID metformin 500 mg tablet extended release 24 hr 500 mg PO BID hydrochlorothiazide 25 mg tablet 25 mg PO DAILY simvastatin 10 mg tablet 10 mg PO QPM metoprolol succinate 100 mg tablet extended release 24 hr 100 mg PO DAILY ibuprofen 600 mg tablet 600 mg PO 3XD Miconazole-3 200 mg- 2 % (9 gram) kit topical fluticasone propionate 50 mcg/actuation spray,suspension 1 spray intranasal QDAY Rx Instructions: administer into each nostril aspirin 81 mg tablet,delayed release (DR/EC) 81 mg PO QDAY cholecalciferol (vitamin D3) [Vitamin D3] 50 mcg (2,000 unit) capsule 50 mcg PO QDAY Co Q-10 300 mg capsule 300 mg PO QDAY Fish Oil 900-1,400 mg capsule,delayed release(DR/EC) PO multivitamin [Multiple Vitamins] Tablet 1 tab PO QDAY zinc gluconate 50 mg tablet 50 mg PO 3XW (DME) Accu-Chek Guide L1-L2 Ctrl Porsche Solution MISCELLANEOUS DIRECTED Mounjaro 5 mg/0.5 mL pen injector 5 mg subcut Follow Up/Referrals: Tayla Stockton MD [Primary Care Provider, Family Practice] Stand Alone Forms: MyHealth Info Instructions
[2025-03-03 12:13] VITALS: O2SAT 95
[2025-03-03 12:19] LABS: Lactate* 2.9 mmol/L (0.5-1.9)
[2025-03-03 12:34] LABS: Albumin* 4.6 g/dL (3.3-5.0); Chloride* 97 mmol/L (96-114); Potassium* 4.3 mmol/L (3.6-5.1); Sodium* 136 mmol/L (135-149)
[2025-03-03 12:35] LABS: Hematocrit* 46.9 % (33.0-51.0); Hemoglobin* 15.9 gm/dL (12.0-16.0); Immature Granulocytes Abs Auto 0.01 K/uL (0.00-0.30); Immature Granulocytes Pct Auto 0.2 %; Lymphocytes Absolute Auto 1.39 K/uL (0.90-2.90); Mean Corpuscular HGB Conc 34 gm/dL (32-36); Mean Corpuscular Hemoglobin 31 pg (26-34); Mean Corpuscular Volume 92 fL (80-100); RDW Coefficient of Variation % 13.4 % (11.5-15.5); Red Blood Count* 5.10 m/uL (4.00-5.20); White Blood Count* 6.39 K/uL (4.50-11.00)
[2025-03-03 12:36] LABS: Blood Urea Nitrogen* 18 mg/dL (7-30); Creatinine* 0.8 mg/dL (0.5-1.5); Est. Creatinine Clearance* 46.54; Estimated Glomerular Filt Rate 76 ml/min
[2025-03-03 12:37] LABS: Alanine Aminotransferase* 60 U/L (4-35); Alkaline Phosphatase* 54 U/L (40-150); Anion Gap 7 mEq/L (7-15); Aspartate Amino Transferase* 79 U/L (12-35); Bilirubin Total* 1.7 mg/dL (0.1-1.5); Calcium* 9.6 mg/dL (8.4-10.6); Carbon Dioxide* 32 mmol/L (20-32); Glucose* 190 mg/dL (60-115); Total Protein* 8.1 g/dL (6.0-8.3)
[2025-03-03 12:43] LABS: Slide Review Reflex No
[2025-03-03 12:52] LABS: NT Pro B Type NatriureticPept* 23 pg/mL (See Note)
[2025-03-03 13:25] LABS: TSH With Reflex to FT4* 2.890 uIU/mL (0.270-4.200)
--- NOTE | 2025-03-03 13:42 | CRLHL7_ITS ---
For Patients: As a result of the Cures Act, medical imaging exams and procedure reports are released immediately into your electronic medical record. You may view this report before your referring provider. If you have questions, please contact your health care provider. INDICATION: Dizziness, gait imbalance. TECHNIQUE: Multisequence multiplanar MRI of the brain without the use of intravenous contrast. COMPARISON: Correlated with CT dated 03/03/2025. FINDINGS: No evidence of acute ischemia. Scattered foci of T2 prolongation within the supratentorial white matter typical of chronic small vessel ischemic changes. Punctate foci of susceptibility artifact in the left temporal lobe (series 7, image 21) and left occipital lobe (series 7, image 14). Mild diffuse parenchymal volume loss. The ventricles are proportional to the sulci. The flow voids of the larger intracranial arteries are preserved. Normal calvarial bone marrow signal intensity. Bilateral pseudophakia. The paranasal sinuses and mastoid air cells are predominantly clear. IMPRESSION: 1. No acute intracranial abnormality. Specifically, no evidence of acute ischemia. 2. Mild diffuse parenchymal volume loss and chronic small vessel ischemic changes. 3. Punctate foci of susceptibility artifact in the left temporal lobe and left occipital lobe consistent with sequela of prior microhemorrhages. Dictated by Naveed Ramirez MD @ 03/03/2025 4:23:26 PM (Electronically Signed)
[2025-03-03 14:39] LABS: INR 1.15 (0.91-1.10); Prothrombin Time 15.6 Seconds
[2025-03-03 16:38] VITALS: BP 130/90; PULSE 91; RESP 18; O2SAT 96
== END 2025-03-03 17:28 | disposition home or self-care (01) ==
PROVIDERS: Emergency Provider Family Medicine; PCP Family Medicine
DX: R42 Dizziness and giddiness (principal); R74.01 Elevation of levels of liver transaminase levels
CPT/HCPCS: 36415; 70450; 70496; 70498; 70551; 80053; 82565; 83605; 83735; 83880; 84443; 84484; 85025; 85610; 85730; 86140; 93005; 94761; 99285; A9270; Q9967